=== PATIENT | female | born 1985 | race Caucasian/White ===

== ENCOUNTER 2021-09-06 09:36 | Emergency (ER) | payer SELFPAY ==
[~2021-09-06] VITALS: Ht 170.2 cm; Wt 79.4 kg
--- NOTE | 2021-09-06 09:50 | NUR ---
[email or web address] home c/o vaginal bleed x 45 mins [employer]. normal delivery 7 weeks ago. vitals are within normal limits. breathing is regular and unlabored.
--- NOTE | 2021-09-06 10:02 | NUR ---
DR SPENCER AT BEDSIDE PERFORMING PELVIC EXAM WITH FEMALE NURSE
--- NOTE | 2021-09-06 10:14 | NUR ---
ULTRASOUND AT BEDSIDE
--- NOTE | 2021-09-06 10:35 | NUR ---
DR PEREZ CALLED FOR CONSULT. TALKING TO DR SPENCER.
[2021-09-06] MEDS ORDERED: MEDR10TA73 PO (10:39)
[2021-09-06 10:54] LABS: BASOPHILS # (AUTO) 0.1 K/uL (0.0-0.2); BASOPHILS % (AUTO) 0.9 % (0.0-2.0); EOSINOPHILS % (AUTO) 3.2 % (0.0-6.0); HEMATOCRIT 37 % (33-45); HEMOGLOBIN 12.9 g/dL (11.5-14.8); LYMPHOCYTES # (AUTO) 2.1 K/uL (0.8-4.8); LYMPHOCYTES % (AUTO) 35.1 % (20.0-44.0); MEAN CORPUSCULAR HGB CONC 35 g/dl (31.0-36.0); MEAN CORPUSCULAR VOLUME 91 fL (82-100); MONOCYTES # (AUTO) 0.4 K/uL (0.1-1.30); MONOCYTES % (AUTO) 7.2 % (2.0-12.0); NEUTROPHILS # (AUTO) 3.2 K/uL (1.8-8.9); NEUTROPHILS % (AUTO) 53.6 % (43.0-81.0); PLATELET COUNT (AUTO) 259 K/uL (150-450); RED BLOOD CELL COUNT(AUTO) 4.05 MIL/uL (4.0-5.2); WHITE BLOOD COUNT (AUTO) 5.9 K/uL (4.3-11.0)
[2021-09-06 11:19] LABS: CALCIUM, SERUM 8.6 mg/dL (8.5-10.1); CREATININE 0.7 mg/dL (0.6-1.3); POTASSIUM 3.8 mmol/L (3.5-5.1)
[2021-09-06 11:34] LABS: ALBUMIN 3.4 g/dL (3.4-5.0); BILIRUBIN,DIRECT 0.1 mg/dL (0.0-0.2); BILIRUBIN,TOTAL 0.3 mg/dL (0.2-1.0)
--- NOTE | 2021-09-06 12:11 | NUR ---
Patient discharged to home in stable condition. Written and verbal after care instructions given and given medication. Patient verbalizes understanding of instruction.
[2021-09-06 12:26] VITALS: BP 112/78
== END 2021-09-06 12:27 | disposition home or self-care (01) ==
LOC: ER 09:38
DX: N93.9 Abnormal uterine and vaginal bleeding, unspecified (principal)
CPT/HCPCS: 36415; 76856-TC; 80048-TC; 80076-TC; 84702-TC; 85025-TC; 85730-TC